=== PATIENT | female | born 1955 | race Caucasian/White ===

== ENCOUNTER 2021-02-24 18:30 | Inpatient (IN) | payer MEDICARE ==
[~2021-02-24] VITALS: Ht 162.6 cm; Wt 72.6 kg
[2021-02-25 00:14] LABS: RED BLOOD COUNT 3.36 M/UL (4.00-5.10); WHITE BLOOD COUNT 9.1 K/UL (4.5-11.0)
[2021-02-25 00:23] LABS: HEMOGLOBIN 6.6 gm/dl (12.3-15.3)
[2021-02-25 00:31] LABS: BUN/CREATININE RATIO 32 (0-10)
[2021-02-25 07:51] LABS: HEMOGLOBIN 7.1 gm/dl (12.3-15.3)
[2021-02-25] MEDS ORDERED: ENALAPRIL MALEA20 MG PO (09:48)
[2021-02-25] MEDS ORDERED: HYDROCHLOROTHIA25 MG PO (09:49)
[2021-02-25] MEDS ORDERED: ALEVE220 MG PO (09:53)
[2021-02-25 12:15] LABS: HEMOGLOBIN 7.4 gm/dl (12.3-15.3)
[2021-02-25 20:00] LABS: HEMOGLOBIN 8.7 gm/dl (12.3-15.3)
[2021-02-26 05:10] LABS: HEMOGLOBIN 8.4 gm/dl (12.3-15.3); WHITE BLOOD COUNT 7.6 K/UL (4.5-11.0)
[2021-02-26 05:20] LABS: RED BLOOD COUNT 3.94 M/UL (4.00-5.10)
[2021-02-26 05:30] LABS: BUN/CREATININE RATIO 19 (0-10)
[2021-02-26] MEDS ORDERED: PROTONIX40 MG PO (11:46)
== END 2021-02-26 16:30 | disposition home or self-care (01) | DRG 378 ==
LOC: ER1 18:30 → M/S 02-25 01:02 → CDU 02-25 01:02 → M/S 02-25 03:30
PROVIDERS: Internal Medicine; Student in an Organized Health Care Education/Training Program; ADMIT Internal Medicine
PROC: 30233N1 Transfusion of Nonautologous Red Blood Cells into Peripheral Vein, Percutaneous Approach (ICD-10-PCS; principal; 2021-02-25)
PROC: 0DB78ZX Excision of Stomach, Pylorus, Via Natural or Artificial Opening Endoscopic, Diagnostic (ICD-10-PCS; 2021-02-26)
DX: K29.01 Acute gastritis with bleeding (principal); D62 Acute posthemorrhagic anemia; K26.4 Chronic or unspecified duodenal ulcer with hemorrhage; K44.9 Diaphragmatic hernia without obstruction or gangrene; B02.9 Zoster without complications; Z20.822 Contact with and (suspected) exposure to COVID-19; E87.6 Hypokalemia; I10 Essential (primary) hypertension; I05.0 Rheumatic mitral stenosis; Z98.51 Tubal ligation status; Z82.3 Family history of stroke; Z83.3 Family history of diabetes mellitus; Z82.49 Family history of ischemic heart disease and other diseases of the circulatory system; Z98.890 Other specified postprocedural states
CPT/HCPCS: 36415; 36430; 80048; 80053; 82550; 82553; 82607; 82746; 83735; 83874; 84100; 84132; 84439; 84443; 84484; 85014; 85018; 85025; 85027; 85610; 85730; 86850; 86900; 86901; 86920; 93005; 99284; C9113; J1940; J2250; J3010; J7040; P9016; U0002

== ENCOUNTER → 2021-03-24 | Outpatient (CLI) | payer MEDICARE ==
[~2021-03-24] MED LIST: ALEVE220 MG PO; ENALAPRIL MALEA20 MG PO; HYDROCHLOROTHIA25 MG PO; PROTONIX40 MG PO
== END ==
LOC: RAD 07:59
DX: K44.9 Diaphragmatic hernia without obstruction or gangrene (principal)
CPT/HCPCS: 74220